=== PATIENT | male | born 1980 | race Caucasian/White ===

== ENCOUNTER 2024-07-29 08:36 | Emergency (ER) | payer MEDICAID, SELFPAY ==
[2024-07-29 08:42] VITALS: BP 154/109; PULSE 78; RESP 18; TEMP 36.9; O2SAT 93; BMI 29.3
--- NOTE | 2024-07-29 08:49 | W.ED.DENTAL ---
HPI - Dental/Oral General: Chief complaint: Dental/Oral Stated complaint: Absess Tooth Time Seen by Provider: 07/29/24 08:37 History of Present Illness: 43-year-old male presents emergency room complaining of right maxillary dental pain with his molars. Severe pain began overnight no fever sweats or chills. He has significant dental caries. No drainage from the tooth. Related Data Previous Rx's Medication Instructions Recorded amoxicillin 875 mg-potassium 1 tab PO BID #20 tabs 07/29/24 clavulanate 125 mg tablet hydrocodone 5 mg-acetaminophen 325 1 tab PO Q6H PRN pain #15 tabs 07/29/24 mg tablet Allergies Allergy/AdvReac Type Severity Reaction Status Date / Time No Known Allergies Allergy Verified 07/29/24 08:47 Review of Systems ENMT: Reports: dental pain Physical Exam Const: COMMON NORMALS: no acute distress GENERAL APPEARANCE: cooperative and comfortable ORIENTATION/CONSCIOUSNESS: Yes awake, Yes oriented to person, Yes oriented to place and Yes oriented to time HENMT: COMMON NORMALS: normocephalic, atraumatic and hearing grossly normal bilaterally HEAD & SCALP: normocephalic and atraumatic OTHER: ENT right upper second molar with significant erosion with swelling along the gumline no purulent abscess or pointing abscess. Resp: COMMON NORMALS: normal respiratory effort, No retractions, No use of accessory muscles and clear to auscultation bilaterally AUSCULTATION: clear to auscultation bilaterally Cardio: COMMON NORMALS: regular rate, regular rhythm and No murmurs present (Cardio) RATE: regular rate RHYTHM: regular rhythm Extremity: COMMON NORMALS: normal to inspection, capillary refill normal, no clubbing, cyanosis or edema, no calf tenderness and no pedal edema Neuro: SENSORIUM/ORIENTATION: Yes oriented to person, Yes oriented to place and Yes oriented to time Skin: COMMON NORMALS: no rashes or lesions noted GENERAL SKIN EXAM: no rashes or lesions noted Course Vital Signs: Vital signs: Vital Signs Temperature 98.4 F 07/29/24 08:42 Pulse Rate 78 07/29/24 08:42 Respiratory Rate 18 07/29/24 08:42 Blood Pressure 154/109 07/29/24 08:42 Pulse Oximetry 93 07/29/24 08:42 Oxygen Delivery Me thod Room Air 07/29/24 08:42 MDM - Dental/Oral Medical Decision Making Patient has obvious dental carry exquisitely tender with palpation along right maxilla. No preauricular cervical lymph nodes noted. Will discharge patient home on Augmentin 875 twice daily also give hydrocodone to use for pain he is not from this area staff gave him contact information for local dentist. He will be staying in the area for an extended period of time for work. No radiology studies performed this visit Discharge Plan Discharge Patient Disposition: Home Clinical Impression: Dental caries Condition: Stable Prescriptions: New hydrocodone-acetaminophen 5-325 mg tablet 1 tab PO Q6H PRN (Reason: pain) Qty: 15 0RF amoxicillin-pot clavulanate 875-125 mg tablet 1 tab PO BID Qty: 20 0RF Discharge Orders: Discharge ED (Routine); Ordered 07/29/24 Ordered By: Judd Jaeger Discharge Diet: Soft Mechanical Discharge Activity: Increase activity as tolerated Patient Instructions: Dental Caries (Cavities), Dental Abscess (ED), Opioid Safety, Pain Management Activity Restrictions/Additional Instructions: Thank you for choosing [facility] for your healthcare needs today. It is very important that you follow up as instructed or that you return to the Emergency Department should you have concerns or if your condition changes or worsens in any way. Coding Level of Care Code ED Rn Cardiovascular Icu for Jared Ramirez
[2024-07-29 09:22] VITALS: BP 141/93; PULSE 69; O2SAT 92
== END 2024-07-29 09:23 | disposition home or self-care (01) ==
PROVIDERS: Emergency Provider Family Medicine
DX: K02.9 Dental caries, unspecified (principal)
CPT/HCPCS: 99283